=== PATIENT | female | born 1945 | race Caucasian/White ===

== ENCOUNTER 2017-05-06 09:25 | Observation (INO) | payer MEDICARE, OTHER ==
[2017-05-06] MEDS ORDERED: Morphine 4 MG/ML Carpuject ONE (09:51)
[2017-05-06] MEDS ORDERED: Ondansetron HCl/PF 4 MG/2 ML Vial ONE (10:20)
[2017-05-06 11:06] LABS: #Lymphocytes 0.8 thou/uL (1.20-3.40); #Monocytes 0.5 thou/uL (0.11-0.59); #Neutrophils 7.3 thou/uL (1.40-6.50); %Basophils 0.6 % (0.0-1.0); %Eosinophils 0.4 % (0.0-10.0); %Lymphocytes 8.8 % (21.0-51.0); %Monocytes 5.2 % (0.0-10.0); Hematocrit 43.8 % (36.0-47.0); Mean Platelet Volume 7.8 fL (7.4-10.4); Red Blood Cell (RBC) Count 5.06 mill/uL (4.20-5.40); White Blood Cell (WBC) Count 8.6 thou/uL (4.8-10.8)
[2017-05-06 11:22] LABS: ALT (SGPT) 17 U/L (8-55); AST (SGOT) 26 U/L (5-34); Alkaline Phosphatase 125 U/L (40-150); Anion Gap 20 mmol/L (10-20); BUN (Urea Nitrogen) 27 mg/dL (9.8-20.1); Bilirubin, Total 0.7 mg/dL (0.2-1.2); Calc. Creatinine Clearance 0 mL/min (70-130); Calcium 9.6 mg/dL (7.8-10.44); Carbon Dioxide 23 mmol/L (23-31); Chloride 102 mmol/L (98-107); Estimated GFR-MDRD 67; Globulin 3.2 g/dL (2.4-3.5); Lipase 16 U/L (8-78); Protein, Total 7.6 g/dL (6.0-8.3); Troponin I 0.043 ng/mL (< 0.028)
[2017-05-06 14:44] LABS: Troponin I 0.053 ng/mL (< 0.028)
[2017-05-06 15:12] LABS: Bilirubin Small (Negative); Blood, Urine Small (Negative); Glucose, Urine (Dipstick) Negative (Negative); Ketone, Urine 80 mg/dL (Negative); Nitrite Negative (Negative); Protein, Urine (Dipstick) Trace mg/dL (Neg-Trace); Urobilinogen 0.2 mg/dL (0.2-1.0)
[2017-05-06 15:16] LABS: WBC/HPF 0-3 HPF (0-3)
[2017-05-06 15:17] LABS: Bacteria/HPF Rare-Few HPF (None Seen); Hyaline Casts/LPF 0-3 HYALINE CAST LPF (0-3 Hyaline)
[2017-05-06] MEDS ORDERED: Ondansetron HCl/PF 4 MG/2 ML Vial IVP PRN (15:38)
[2017-05-06] MEDS ORDERED: Nitroglycerin 0.4 MG TAB (25 Tab Bottle) SL PRN (15:38)
[2017-05-06] MEDS ORDERED: Calcium Carbonate 500 MG ChewTAB PO PRN (15:38)
[2017-05-06] MEDS ORDERED: Lorazepam 1 MG TAB PO PRN (15:38)
[2017-05-06] MEDS ORDERED: hydrALAZINE 20 MG/ML VIAL SLOW IVP PRN (15:38)
[2017-05-06] MEDS ORDERED: Senokot 8.6 MG TAB PO PRN ×2 (15:38)
[2017-05-06] MEDS ORDERED: Bisacodyl 5 MG TAB PO PRN ×2 (15:38)
[2017-05-06] MEDS ORDERED: cloNIDine 0.1 MG TAB PO PRN (15:38)
[2017-05-06] MEDS ORDERED: Benzonatate 100 MG CAP PO PRN (15:38)
[2017-05-06] MEDS ORDERED: Loratadine 10 MG TAB PO PRN (15:38)
[2017-05-06] MEDS ORDERED: Acetaminophen 325 MG TAB PO PRN (15:38)
[2017-05-06] MEDS ORDERED: Mag-Al 1200 mg/1200 mg/30 ML UDCUP PO PRN (15:38)
--- NOTE | 2017-05-06 15:59 | RAD ---
ACUTE ABDOMINAL SERIES: Date: 05/06/17 HISTORY: Abdominal pain and nausea. Onset of symptoms last week. FINDINGS: CHEST: Comparison on 10/29/16. Again noted is evidence of prior granulomatous disease. Cardiac silhouette a nd pulmonary vasculature are within normal limits. There is increased density at the left lung base, probably related to overlying soft tissue density. Lungs are otherwise clear. No free intraperitone al air is seen beneath the hemidiaphragms. No other interval change. 2 VIEW ABDOMEN: There is nonspecific bowel gas pattern. No suspicious calcifications are seen. Vascular calcificatio ns overlie the pelvis. There are degenerative changes in the spine. Calcifications overlie the right upper quadrant, which may be related to either calcified granuloma in the lung bases or calcified g ranulomata in the liver. Postsurgical changes in the epigastric region are present. IMPRESSION: Nonspecific bowel gas pattern, and acute abdominal series is stable compared to study on 10/29/16. POS: [facility]
[2017-05-06 17:49] LABS: Troponin I 0.051 ng/mL (< 0.028)
[2017-05-06 18:29] VITALS: BMI 30.3
[2017-05-06] MEDS: Famotidine 20 MG TAB PO SCH (20:02)
[2017-05-06] MEDS: Sodium Chloride 0.9% 1,000 ML IV SCH ×2 (20:03→20:04)
[2017-05-06] MEDS ORDERED: Atorvastatin Calcium 40 MG TAB PO SCH (21:00)
--- NOTE | 2017-05-07 00:42 | HP ---
DATE OF ADMISSION: 05/06/2017 PRIMARY CARE PHYSICIAN: Mani Salinas MD CHIEF COMPLAINT: Intractable nausea, dry heaves with loose stools for 1 week. HISTORY OF PRESENT ILLNESS: Ms. Barajas is a very pleasant, 72-year-old, female with past medical history of abdominal hernia repair in 2014 and history of C. difficile in 2014 as well as hy pertension, who presented to the emergency room with the above-mentioned complaint. History is main ly obtained by the patient herself, and electronic medical records have been reviewed. The patient was admitted to our facility in 12/2014 for a large hiatal hernia. At that time, she underwent lapa roscopic repair and Pepe fundoplication as well as placement of a PEG tube. At that time, also candelario lawrence was diagnosed with C. diff and was discharged on vancomycin orally. She was later admitted in 2014 and was found to have urinary tract infection and reoccurrence of C. difficile or partially jahaira ated C. difficile. Today, she presented to the [facility] with the above-mentioned complaints. She reports that she has been feeling fine, but about 4 or 5 days ago, she started to have significant nausea. The patient reports that she is unable to vomit because of her hiatal hernia repair, but candelario lawrence had such severe dry heaves that she was incontinent for stool. Her stools have been somewhat loos e as well. She denies seeing any blood in the stools. She denies any fever or chills. She has no history of recent travel, recent antibiotic use or eating outside. She has no sick contacts. She h ad mild abdominal discomfort, but denies any . The patient reports that she has not been able to hold anything down because of severe retching. It was associated with some chills now without an y fevers. She also was unable to take her medications at home, so she was found to be severely hype rtensive in the emergency room with blood pressure of 179/73 upon presentation and as high as systol ic over 190. A KUB done in the emergency room is negative for any acute abdominal obstruction. Inc idental finding is elevation of troponin initially at 0.043, then 0.053. The patient does not have any significant history of cardiac disease. She reports that she has had a cardiac catheterization done, but multiple years ago and was told it was normal. For her elevated cardiac enzymes, she is n ow being admitted for further workup and rule out acute coronary syndrome under observation status. PAST MEDICAL HISTORY: 1. Restless leg syndrome. 2. Hypertension. 3. Hypothyroidism. 4. Asthma. 5. Dyslipidemia. 6. Peripheral neuropathy. 7. History of hiatal hernia, status post repair. PAST PSYCHIATRIC HISTORY: Depression. PAST SURGICAL HISTORY: 1. Appendectomy. 2. Carpal tunnel surgery. 3. section. 4. Pepe fundoplication and laparoscopic repair of hiatal hernia in 2014. 5. Gynecological reconstruction. 6. Laparoscopic-assisted PEG tube placement. SOCIAL HISTORY: She is and lives at home with her son and grandson. No history of drug, to bacco or alcohol abuse. FAMILY HISTORY: Significant for colon cancer. ALLERGIES: Include MORPHINE. CURRENT MEDICATIONS: Include amlodipine 10 mg daily, Synthroid 25 mcg daily, Downey as needed every 8 hours, losartan/hydrochlorothiazide 50/12.5 once a day, atorvastatin 40 mg a day, Nexium 40 mg anat ly, ropinirole 0.5 mg as needed, aspirin 81 mg daily, and Advair Diskus once in the morning. REVIEW OF SYSTEMS: The following complete review of systems was negative, unless otherwise mentione d in the HPI or below. It is negative except for those mentioned in the history and physical. Constitutional: Weight loss or gain, ability to conduct usual activities. Skin: Rash, itching. Eyes: Double vision, pain. ENT/Mouth: Nose bleeding, neck stiffness, pain, tenderness. Cardiovascular: Palpitations, dyspnea on exertion, orthopnea. Respiratory: Shortness of breath, wheezing, cough, hemoptysis, fever or night sweats. Gastrointestinal: Poor appetite, abdominal pain, heartburn, nausea, vomiting, constipation, or diar avery. Genitourinary: Urgency, frequency, dysuria, nocturia. Musculoskeletal: Pain, swelling. Neurologic/Psychiatric: Anxiety, depression. Allergy/Immunologic: Skin rash, bleeding tendency. LABORATORY DATA: CBC is showing neutrophilia at 85% with normal WBC count. Serum chemistries show BUN of 27, creatinine of 0.83, troponin 0.043 and 0.053 with normal CK-MB. Lipase is normal. Liver enzymes are normal. Urinalysis shows small blood and ketones, otherwise unremarkable. KUB by my e valuation shows nonspecific bowel gas pattern without any evidence of obstruction. No significant p ulmonary infiltrate noticed. PHYSICAL EXAMINATION: VITAL SIGNS: Most recent vital signs include blood pressure 192/79, pulse of 78, respirations 19, s aturating 94% on room air. GENERAL: She appears comfortable, awake, alert, oriented x3, very pleasant, lying comfortably in be d, in no acute distress. HEENT: Mucous membrane is moist and pink. No oropharyngeal exudate or erythema. Head is normoceph alic, atraumatic. Pupils are equal, reactive to light and accommodation. Extraocular movements are intact. NECK: Supple without any lymphadenopathy, JVD or bruit. CHEST: Clear to auscultation without any wheezing, rales or rhonchi. CARDIOVASCULAR: Rhythm is regular without any murmur, rubs or gallops. ABDOMEN: Soft, nontender, nondistended. section and hernia repair scars are noticed. Elizabeth el sounds are somewhat hyperactive. No guarding, rebound or rigidity. EXTREMITIES: Free of any cyanosis, clubbing or edema. NEUROLOGIC: Nonfocal. SKIN: Free of any rashes or bruises. Feels warm and dry to touch. PSYCHIATRIC: Normal affect. VASCULAR: A +2 pedal pulses felt bilaterally. IMPRESSION AND PLAN: 1. Indeterminate troponin, this is likely secondary to demand ischemia from dehydration and ongoing gastrointestinal symptoms including retching and diarrhea. At this time, the patient can benefit f rom further evaluation given her history of hypertension. We will admit her to this observation uni t on telemetry and obtain a nuclear medicine stress test. Continue to trend serial cardiac enzymes. Her last transthoracic echocardiogram was done in 2014, which was rather unremarkable. Continue w ith aspirin and Lipitor at this time. Continue with ARB. If necessary, we will add a beta darwin as well. Cardiac enzyme elevation can also be secondary to uncontrolled hypertension, this she has suffered from inability to take her oral antihypertensives at home. 2. Uncontrolled hypertension. At this time, we will restart her home medications with the exceptio n of hydrochlorothiazide to prevent dehydration. Add p.r.n. antihypertensives and monitor her sympt oms closely. 3. Intractable nausea and loose stools. We will check a Clostridium difficile given the patient's history of the same. At this time, she will be treated empirically with IV fluids. No clear indica tion for antibiotics at this time. Stools will also be sent for culture, ova and parasite. 4. History of asthma. We will continue her home medication of Advair and add nebulizers as needed basis. At this time, she has no respiratory distress. 5. Dyslipidemia. Continue with atorvastatin for now. 6. Hypothyroidism. Continue with Synthroid 25 mcg by mouth daily. 7. History of hiatal hernia and repair. Continue proton pump inhibitor. 8. Restless legs syndrome. We will continue Requip as needed. 9. Deep venous thrombosis and gastrointestinal prophylaxis. 10. Code status: FULL CODE. DISPOSITION: The patient is currently being admitted under observation status for ACS workup. Furt her management will depend upon her clinical course.
[2017-05-07 05:47] LABS: #Eosinphils 0.1 thou/uL (0.0-0.7); #Lymphocytes 1.3 thou/uL (1.20-3.40); #Monocytes 0.7 thou/uL (0.11-0.59); %Basophils 0.4 % (0.0-1.0); %Eosinophils 1.6 % (0.0-10.0); %Lymphocytes 21.2 % (21.0-51.0); %Monocytes 11.2 % (0.0-10.0); Mean Platelet Volume 7.5 fL (7.4-10.4); Red Blood Cell (RBC) Count 4.08 mill/uL (4.20-5.40); White Blood Cell (WBC) Count 6.1 thou/uL (4.8-10.8)
[2017-05-07] MEDS ORDERED: Levothyroxine Sodium 25 MCG TAB PO SCH (06:00)
[2017-05-07 06:01] LABS: Anion Gap 11 mmol/L (10-20); BUN (Urea Nitrogen) 21 mg/dL (9.8-20.1); Calc. Creatinine Clearance 81 mL/min (70-130); Calcium 8.4 mg/dL (7.8-10.44); Carbon Dioxide 24 mmol/L (23-31); Chloride 108 mmol/L (98-107); Estimated GFR-MDRD 78
[2017-05-07] MEDS ORDERED: Mometasone/Formoterol 120 PUFF INHALER INH SCH (08:00)
[2017-05-07 08:40] VITALS: BP 117/58; TEMP 97.2
[2017-05-07] MEDS ORDERED: Amlodipine 10 MG TAB PO SCH ×2 (09:00→21:00)
[2017-05-07] MEDS ORDERED: Enoxaparin Sodium 40 MG/0.4 ML SYRINGE SC SCH (09:00)
[2017-05-07] MEDS ORDERED: Pregabalin 75 MG CAP PO SCH (09:00)
[2017-05-07] MEDS ORDERED: Aspirin 81 mg Enteric Coated Tablet PO SCH (09:00)
[2017-05-07] MEDS ORDERED: Nebivolol HCl 5 MG TAB PO SCH (09:00)
[2017-05-07] MEDS ORDERED: Losartan Potassium 25 MG TAB PO SCH (09:00)
[2017-05-07] MEDS: Famotidine 20 MG TAB PO SCH (12:05)
[2017-05-07] MEDS: Sodium Chloride 0.9% 1,000 ML IV SCH (12:06)
--- NOTE | 2017-05-07 13:56 | NM ---
NUCLEAR MEDICINE CARDIAC PERFUSION EXAMINATION 05/07/17 HISTORY: 72-year-old female with chest pain, hypertension and hyperlipidemia. TECHNIQUE: A single day nuclear medicine cardiac perfusion examination was performed. rest images were obtained using 9.4 millicuries of technetium 99m Sestamibi. Stress images were obtained using 28 millicuries of technetium 99m Sestamibi and Lexiscan. FINDINGS: Tomographic images show no fixed or reversible perfusion defects. Gated images show normal wall renee on with ejection fracture greater than 70%. EDV is 64 mL. LHR is 0.35. TID is 0.95. IMPRESSION: No evidence of ischemia. POS: [facility]
[2017-05-07] MEDS ORDERED: Regadenoson 0.4 MG/5 ML SYRINGE ONE (15:11)
--- NOTE | 2017-05-07 20:20 | DIS ---
DATE OF ADMISSION: 05/06/2017 DATE OF DISCHARGE: 05/07/2017 CONDITION AT THE TIME OF DISCHARGE: Stable and improved. DISCHARGE DIAGNOSES: 1. Indeterminate troponin, likely demand ischemia. 2. Possible gastroenteritis, likely viral. 3. Nausea, vomiting, and dehydration. 4. Uncontrolled hypertension, now resolved. 5. Restless leg syndrome. 6. Hypothyroidism. 7. Asthma. 8. Dyslipidemia. 9. Peripheral neuropathy. 10. History of hiatal hernia surgical repair. DISCHARGE MEDICATIONS: Remain the same as admission medication. Please see my H\T\P for further de tails. NEW MEDICATION: Zofran as needed 4 mg p.o. every 4-6 hours. PRIMARY CARE PHYSICIAN: Mani Salinas M.D CONSULTATIONS: None. PROCEDURES: 1. Include acute abdominal series, which shows nonspecific bowel gas pattern without any obstructio n. 2. Nuclear medicine stress test, which is negative for any evidence of ischemia. EF is estimated a t 70%. HISTORY OF PRESENT ILLNESS: Ms. Barajas is a very pleasant 72-year-old female with past medical hist ory as mentioned above, who presented to [facility] for complaints of dry heaving, nausea, a nd stool incontinence. She was found to have indeterminate troponin and for this reason, she was br ought in to rule out ACS. Please see admission history and physical dictated by myself for further details. HOSPITAL COURSE: The patient was started on gentle diet after acute abdominal and intestinal obstru ction was ruled out. She tolerated the diet well and underwent a nuclear medicine stress test for i ndeterminate range troponin and was started on full dose aspirin. Please note that the patient take s a baby aspirin at home anyways. She has no cardiac history so to say. Her stress test was unrema rkable and she was hemodynamically stable. Initially she had elevated blood pressure in the emergen cy room because she was not able to take her blood pressure medications at home. Once these were re started, her blood pressure was under much better control. On the day of discharge, she has eaten a regular meal without any discomfort, nausea, or vomiting. Stool studies were ordered with regards to her history of C. diff, but the clinical suspicion is ruy y low at this time. She was unable to provide us with a sample. She has no leukocytosis, no fever, no abdominal pain, no abdominal tenderness on exam. At this time, I have instructed her to return to the ER or call her primary care physician if her symptoms return. Likely suspicion is of viral g astroenteritis. She was seen and examined prior to discharge. PHYSICAL EXAMINATION: Include, VITAL SIGNS: Temperature 97.2, pulse of 56, respirations 16, saturating 96% on 2 liters and 92% on room air, blood pressure 117/58. GENERAL: No acute distress, sitting up comfortably in bed, very pleasant, awake, alert, oriented x3 . CHEST: Clear to auscultation without any wheezing, rales or rhonchi. Rate and rhythm is regular wi thout any murmur, rubs or gallops. ABDOMEN: Soft, nontender, nondistended, positive bowel sounds. LABORATORY DATA: BUN 27 on admission, which was 21 on discharge. Troponin highest 0.[address] arted to trend down at 0.051 with IV fluid resuscitation. At this time, the patient is instructed to monitor her blood pressure at home and hold her losartan and hydrochlorothiazide if it is less than systolic 120. She is also instructed to discontinue the Lasix and potassium chloride, which is actually not even taking. She is instructed to use Celebrex only sparingly given the possibility of gastritis. She understood the plan and will follow accordin gly. At this time, she will be discharged back home.
[2017-05-07] MEDS ORDERED: rOPINIRole HCl 2 MG TAB PO SCH (21:00)
[2017-05-07] MEDS ORDERED: predniSONE 5 MG TAB PO SCH (21:00)
== END 2017-05-07 16:12 | disposition home or self-care (01) ==
LOC: SCSER 09:25 → 2SW 17:33
PROVIDERS: ADMIT Internal Medicine; ATTEND Internal Medicine
DX: R79.89 Other specified abnormal findings of blood chemistry (principal); R11.2 Nausea with vomiting, unspecified; E86.0 Dehydration; I10 Essential (primary) hypertension; G25.81 Restless legs syndrome; E03.9 Hypothyroidism, unspecified; J45.909 Unspecified asthma, uncomplicated; E78.5 Hyperlipidemia, unspecified; G62.9 Polyneuropathy, unspecified; Z90.49 Acquired absence of other specified parts of digestive tract; Z98.891 History of uterine scar from previous surgery; Z98.890 Other specified postprocedural states
CPT/HCPCS: 74022; 78452; 80048; 80053; 82553; 83690; 84484 ×2; 85025 ×2; 93005; 93017; 94640; 96361 ×3; 96372; 96374; 97139; 99285; A9500; G0378; 36415; 81003; 81015; J1650; J2270; J2405; J2785

== ENCOUNTER 2017-05-25 10:55 | Emergency (ER) | payer MEDICARE ==
[2017-05-25 11:46] LABS: #Basophils 0.1 thou/uL (0.0-0.2); #Lymphocytes 1.1 thou/uL (1.20-3.40); #Monocytes 0.6 thou/uL (0.11-0.59); #Neutrophils 8.2 thou/uL (1.40-6.50); %Basophils 0.7 % (0.0-1.0); %Eosinophils 0.4 % (0.0-10.0); %Lymphocytes 11.2 % (21.0-51.0); %Monocytes 5.9 % (0.0-10.0); Hematocrit 45.1 % (36.0-47.0); Mean Platelet Volume 8.1 fL (7.4-10.4); Red Blood Cell (RBC) Count 5.17 mill/uL (4.20-5.40); White Blood Cell (WBC) Count 10.1 thou/uL (4.8-10.8)
[2017-05-25 11:58] LABS: ALT (SGPT) 15 U/L (8-55); AST (SGOT) 19 U/L (5-34); Alkaline Phosphatase 134 U/L (40-150); Anion Gap 20 mmol/L (10-20); BUN (Urea Nitrogen) 23 mg/dL (9.8-20.1); Bilirubin, Total 0.8 mg/dL (0.2-1.2); Calc. Creatinine Clearance 0 mL/min (70-130); Calcium 10.2 mg/dL (7.8-10.44); Carbon Dioxide 22 mmol/L (23-31); Chloride 104 mmol/L (98-107); Estimated GFR-MDRD 64; Globulin 3.6 g/dL (2.4-3.5); Protein, Total 8.3 g/dL (6.0-8.3)
[2017-05-25 12:37] LABS: Bilirubin Negative (Negative); Blood, Urine Trace (Negative); Glucose, Urine (Dipstick) Negative (Negative); Ketone, Urine 15 mg/dL (Negative); Nitrite Positive (Negative); Protein, Urine (Dipstick) 30 mg/dL (Neg-Trace)
[2017-05-25 12:38] LABS: Bacteria/HPF 4+ HPF (None Seen); RBC/HPF 0-3 HPF (0-3); Squamous Epithelial 0-3 HPF (0-3); WBC/HPF 0-3 HPF (0-3)
[2017-05-25 12:39] LABS: Hyaline Casts/LPF 0-3 HYALINE CAST LPF (0-3 Hyaline)
[2017-05-25] MEDS ORDERED: Cephalexin 500 MG CAP ONE (12:55)
== END 2017-05-25 12:59 | disposition home or self-care (01) ==
LOC: SCSER 10:55
DX: N39.0 Urinary tract infection, site not specified (principal); E03.9 Hypothyroidism, unspecified; E78.5 Hyperlipidemia, unspecified; I10 Essential (primary) hypertension; J45.909 Unspecified asthma, uncomplicated; Z79.899 Other long term (current) drug therapy; Z79.82 Long term (current) use of aspirin
CPT/HCPCS: 80053; 81001; 85025; 87077; 87086; 87186; 96360

== ENCOUNTER 2017-08-31 08:12 | Emergency (ER) | payer MEDICARE ==
[2017-08-31 08:39] LABS: #Basophils 0.1 thou/uL (0.0-0.2); #Eosinphils 0.1 thou/uL (0.0-0.7); #Monocytes 0.5 thou/uL (0.11-0.59); #Neutrophils 5.1 thou/uL (1.40-6.50); %Basophils 0.9 % (0.0-1.0); %Lymphocytes 14.9 % (21.0-51.0); %Monocytes 7.5 % (0.0-10.0); %Neutrophils 75.7 % (42.0-75.0); Hemoglobin 14.4 g/dL (12.0-16.0); Mean Corpuscular Hemoglobin 26.8 pg (27.0-31.0); Mean Corpuscular Volume 83.6 fl (81.0-99.0); Mean Platelet Volume 8.4 fL (7.4-10.4); Platelet Count 231 thou/uL (130-400); RBC Distribution Width 13.1 % (11.5-14.5); Red Blood Cell (RBC) Count 5.38 mill/uL (4.20-5.40); White Blood Cell (WBC) Count 6.8 thou/uL (4.8-10.8)
[2017-08-31 08:49] LABS: ALT (SGPT) 23 U/L (8-55); AST (SGOT) 28 U/L (5-34); Albumin 4.3 g/dL (3.4-4.8); Alkaline Phosphatase 120 U/L (40-150); Anion Gap 19 mmol/L (10-20); BUN (Urea Nitrogen) 16 mg/dL (9.8-20.1); Bilirubin, Total 0.8 mg/dL (0.2-1.2); Calc. Creatinine Clearance 0 mL/min (70-130); Calcium 9.8 mg/dL (7.8-10.44); Carbon Dioxide 21 mmol/L (23-31); Chloride 106 mmol/L (98-107); Estimated GFR-MDRD 66; Globulin 3.1 g/dL (2.4-3.5); Glucose 99 mg/dL (83-110); Potassium 3.6 mmol/L (3.5-5.1); Protein, Total 7.4 g/dL (6.0-8.3); Sodium 142 mmol/L (136-145)
[2017-08-31 10:20] LABS: Bilirubin Moderate (Negative); Blood, Urine Trace (Negative); Clarity Slightly Cloudy (Clear); Glucose, Urine (Dipstick) Negative (Negative); Leukocyte Negative (Negative); Nitrite Negative (Negative); Protein, Urine (Dipstick) 30 mg/dL (Neg-Trace); Urobilinogen 0.2 mg/dL (0.2-1.0); pH, Urine 6.5 (5.0-9.0)
[2017-08-31 10:27] LABS: Bacteria/HPF None Seen HPF (None Seen); RBC/HPF 0-3 HPF (0-3); Squamous Epithelial 0-3 HPF (0-3); WBC/HPF 0-3 HPF (0-3)
== END 2017-08-31 10:52 | disposition home or self-care (01) ==
LOC: SCSER 08:12
DX: E86.0 Dehydration (principal); R19.7 Diarrhea, unspecified; E03.9 Hypothyroidism, unspecified; E78.5 Hyperlipidemia, unspecified; I10 Essential (primary) hypertension; J45.909 Unspecified asthma, uncomplicated; Z79.899 Other long term (current) drug therapy; Z79.82 Long term (current) use of aspirin
CPT/HCPCS: 80053; 81003; 81015; 85025; 96360

== ENCOUNTER 2025-05-15 06:16 | Emergency (ER) | payer MEDICARE ==
[2025-05-15 07:46] LABS: #Basophils 0.05 10x3/uL (0.0-0.2); #Eosinophils 0.14 10x3/uL (0.0-0.7); #Monocytes 0.64 10x3/uL (0.11-0.59); #Neutrophils 4.54 10x3/uL (1.40-6.50); %Basophils 0.7 % (0.0-1.0); %Eosinophils 2.1 % (0.0-10.0); %Lymphocytes 21.0 % (21.0-51.0); %Monocytes 9.4 % (0.0-10.0); %Neutrophils 66.5 % (42.0-75.0); Hematocrit 38.6 % (36.0-47.0); Hemoglobin 11.7 g/dL (12.0-16.0); Mean Corpuscular Hemoglobin 27.7 pg (27.0-31.0); Mean Corpuscular Volume 91.5 fL (78.0-98.0); Platelet Count 222 10x3/uL (130-400); Red Blood Cell (RBC) Count 4.22 mill/uL (4.20-5.40); White Blood Cell (WBC) Count 6.82 10x3/uL (4.8-10.8)
[2025-05-15 08:08] LABS: ALT (SGPT) Less than 7 U/L (Less than 34); AST (SGOT) 16 U/L (11-34); Albumin 3.9 g/dL (3.1-4.5); Alkaline Phosphatase 88 U/L (40-110); Anion Gap 14 mmol/L (10-20); BUN (Urea Nitrogen) 26 mg/dL (9.8-20.1); Bilirubin, Total 0.3 mg/dL (0.3-1.2); Calc. Creatinine Clearance 0 mL/min (70-130); Calcium 8.9 mg/dL (7.8-10.44); Carbon Dioxide 23 mmol/L (23-31); Chloride 110 mmol/L (98-107); Globulin 3.2 g/dL (2.4-3.5); Glucose 98 mg/dL (83-110); Lipase 19 U/L (8-78); Potassium 4.2 mmol/L (3.5-5.1); Sodium 143 mmol/L (136-145)
[2025-05-15] MEDS ORDERED: Iopamidol-370 76% 500 ML MDV (1 ML CHARGE) ONE (09:27)
== END 2025-05-15 08:44 | disposition home or self-care (01) ==
LOC: ERS 06:16
DX: S22.32XA Fracture of one rib, left side, initial encounter for closed fracture (principal); I10 Essential (primary) hypertension; E78.00 Pure hypercholesterolemia, unspecified; Z79.899 Other long term (current) drug therapy; W01.198A Fall on same level from slipping, tripping and stumbling with subsequent striking against other object, initial encounter
CPT/HCPCS: 71260; 74177; 80053; 83690; 85025; 94799; 96374